=== PATIENT | female | born 1940 | race Caucasian/White ===

== ENCOUNTER 2016-08-01 10:14 | Outpatient (CLI) | payer MEDICARE ==
[2016-08-01 12:07] LABS: #Eosinphils 0.2 thou/uL (0.0-0.7); #Lymphocytes 2.7 thou/uL (1.20-3.40); #Monocytes 0.6 thou/uL (0.11-0.59); #Neutrophils 4.8 thou/uL (1.40-6.50); %Basophils 0.6 % (0.0-1.0); %Eosinophils 2.2 % (0.0-10.0); Hematocrit 40.9 % (36.0-47.0); Mean Platelet Volume 6.1 fL (7.4-10.4); Red Blood Cell (RBC) Count 4.69 mill/uL (4.20-5.40); White Blood Cell (WBC) Count 8.2 thou/uL (4.8-10.8)
[2016-08-01 12:27] LABS: ALT (SGPT) 26 U/L (0-55); AST (SGOT) 16 U/L (5-34); Alkaline Phosphatase 93 U/L (40-150); Anion Gap 13 mmol/L (10-20); BUN (Urea Nitrogen) 27 mg/dL (9.8-20.1); Bilirubin, Total 1.1 mg/dL (0.2-1.2); Calc. Creatinine Clearance 0 mL/min (70-130); Calcium 9.8 mg/dL (7.8-10.44); Carbon Dioxide 30 mmol/L (23-31); Chloride 101 mmol/L (98-107); Estimated GFR-MDRD 54; LDL Cholesterol, Calculated 90 mg/dL; Protein, Total 7.4 g/dL (5.8-8.1)
[2016-08-01 12:38] LABS: Hemoglobin A1c 9.1 % (4.0-6.0)
[2016-08-01 18:05] LABS: Free T3 1.61 pg/mL (1.71-3.71)
== END 2016-08-01 10:15 | disposition home or self-care (01) ==
LOC: HPCALD 10:14
PROVIDERS: ATTEND Family Medicine
DX: E78.5 Hyperlipidemia, unspecified (principal); E03.9 Hypothyroidism, unspecified; E11.9 Type 2 diabetes mellitus without complications; I10 Essential (primary) hypertension
CPT/HCPCS: 36415; 80053; 80061; 83036; 84439; 84443; 84481; 85025

== ENCOUNTER 2016-08-03 10:24 | Outpatient (CLI) | payer MEDICARE | END 2016-08-03 10:25 | disposition home or self-care (01) | LOC: HPCALD 10:24 | PROVIDERS: ATTEND Family Medicine | DX: N39.0 Urinary tract infection, site not specified (principal) | CPT/HCPCS: 87086 ==